=== PATIENT | male | born 1975 | race Caucasian/White ===

== ENCOUNTER 2018-10-23 01:16 | Emergency (ER) | payer OTHER ==
[2018-10-23] MEDS ORDERED: DIPHENOX/ATROP SULF 1 TAB PO ONE (01:42)
[2018-10-23] MEDS ORDERED: ONDANSETRON 4 MG/2 ML VIAL ONE (01:43)
[2018-10-23] MEDS ORDERED: NA CHLORIDE 0.9% 1,000 ML ONE (01:43)
[2018-10-23 02:07] LABS: Absolute Lymphocytes (CBC) 2.5 K/uL (0.7-4.9); Basophils % 0.4 % (0-1.3); Hematocrit 43.2 % (39.6-49.0); MPV 9.4 fL (7.6-11.3); RBC Red Blood Cell Count 4.98 M/uL (4.33-5.43)
[2018-10-23] MEDS ORDERED: DICYCLOMINE HCL 10 MG CAP ONE (02:29)
[2018-10-23 02:31] LABS: ALT/SGPT 36 U/L (12-78); AST/SGOT 18 U/L (15-37); Albumin 4.2 g/dL (3.4-5.0); Alkaline Phosphatase 117 U/L (45-117); BUN Blood Urea Nitrogen 23 mg/dL (7-18); Bicarbonate 26 mmol/L (21-32); Bilirubin Direct < 0.1 mg/dL (0-0.2); Bilirubin Total 0.3 mg/dL (0.2-1.0); Glucose Level 114 mg/dL (74-106); Lipase 214 U/L (73-393); Potassium 4.6 mmol/L (3.5-5.1); Protein, Total 7.4 g/dL (6.4-8.2); Sodium Level 137 mmol/L (136-145)
--- NOTE | 2018-10-23 02:39 | EDPHYS ---
Physician Documentation [facility] Name: Lexx Art Age: 43 yrs Sex: Male : 1975 Arrival Date: 10/23/2018 Time: 01:18 Bed 17 Private MD: ED Physician Colt John HPI: 10/23 02:32 This 43 yrs old Male presents to ER via Ambulatory with complaints of tw4 Abdominal Pain. 02:32 The patient presents to the emergency department with nausea, diarrhea, 2 times since tw4 the onset of symptoms. Onset: The symptoms/episode began/occurred today. Possible causes: unknown. The symptoms are aggravated by nothing. The symptoms are alleviated by nothing. Severity of symptoms: At their worst the symptoms were moderate in the emergency department the symptoms are unchanged. The patient has not experienced similar symptoms in the past. Historical: - Allergies: 01:27 No Known Allergies; ao - Home Meds: 01:27 Lexapro Oral [Active]; ao - PMHx: :27 Depression; ao - PSHx: 01:27 None; ao - Immunization history:: Adult Immunizations up to date. - Social history:: Smoking status: Patient uses tobacco products. - Ebola Screening: : Patient negative for fever greater than or equal to 101.5 degrees Fahrenheit, and additional compatible Ebola Virus Disease symptoms Patient denies exposure to infectious person Patient denies travel to an Ebola-affected area in the 21 days before illness onset. ROS: 02:32 Constitutional: Negative for fever, chills, and weight loss, Eyes: Negative for injury, tw4 pain, redness, and discharge, Cardiovascular: Negative for chest pain, palpitations, and edema, Respiratory: Negative for shortness of breath, cough, wheezing, and pleuritic chest pain. 02:32 Back: Negative for injury and pain, MS/Extremity: Negative for injury and deformity, Skin: Negative for injury, rash, and discoloration, Neuro: Negative for headache, weakness, numbness, tingling, and seizure. 02:32 Abdomen/GI: Positive for abdominal pain, nausea, diarrhea, abdominal cramps, Negative for nausea and vomiting, vomiting. Exam: 02:32 Constitutional: This is a well developed, well nourished patient who is awake, alert, tw4 and in no acute distress. Head/Face: Normocephalic, atraumatic. Chest/axilla: Normal chest wall appearance and motion. Nontender with no deformity. No lesions are appreciated. Cardiovascular: Regular rate and rhythm with a normal S1 and S2. No gallops, murmurs, or rubs. Normal PMI, no JVD. No pulse deficits. Respiratory: Lungs have equal breath sounds bilaterally, clear to auscultation and percussion. No rales, rhonchi or wheezes noted. No increased work of breathing, no retractions or nasal flaring. Abdomen/GI: Soft, non-tender, with normal bowel sounds. No distension or tympany. No guarding or rebound. No evidence of tenderness throughout. Back: No spinal tenderness. No costovertebral tenderness. Full range of motion. MS/ Extremity: Pulses equal, no cyanosis. Neurovascular intact. Full, normal range of motion. Neuro: Awake and alert, GCS 15, oriented to person, place, time, and situation. Cranial nerves II-XII grossly intact. Motor strength 5/5 in all extremities. Sensory grossly intact. Cerebellar exam normal. Normal gait. Vital Signs: 01:27 BP 145 / 97; Pulse 75; Resp 18; Temp 98.5; Pulse Ox 97% on R/A; Weight 97.52 kg (R); ao Height 5 ft. 10 in. (177.80 cm) (R); Pain 6/10; 02:41 BP 147 / 99; Pulse 66; Resp 18; Pulse Ox 97% on R/A; ea 01:27 Body Mass Index 30.85 (97.52 kg, 177.80 cm) ao MDM: 01:24 Patient medically screened. tw4 02:32 Differential diagnosis: Nonspecific abd pain, gastritis, viral gastroenteritis, tw4 gastroenteritis. Data reviewed: vital signs, nurses notes. Data reviewed: lab test result(s), CBC, white blood cell count, hemoglobin, hematocrit, platelets, electrolytes, sodium, potassium, chloride, serum bicarbonate, BUN, creatinine, serum glucose. Data interpreted: Pulse oximetry: Interpretation: normal. Counseling: I had a detailed discussion with the patient and/or guardian regarding: the historical points, exam findings, and any diagnostic results supporting the discharge/admit diagnosis, lab results. Medication response: Zofran markedly relieved the patient's nausea. lomotil. Response to treatment: the patient's symptoms have markedly improved after treatment, and as a result, I will discharge patient. Special discussion: Based on the patient's Hx, exam, and Dx evaluation, there is no indication for emergent surgery or inpatient Tx. It is understood by the patient/guardian that if the Sx's persist or worsen they need to return immediately for re-evaluation. Based on the patient's history, exam and DX evaluation, there is no indication for emergent intervention or inpatient TX. It is understood by the patient/guardian that if the SXs persist or worsen they need to return immediately for re-evaluation. 10/23 01:24 Order name: Basic Metabolic Panel 10/23 01:24 Order name: CBC with Diff; Complete Time: 02:25 10/23 02:25 Interpretation: Normal except: WBC 14.8; JOE% 76.4; NEUT A 11.3. 10/23 01:24 Order name: Creatinine for Radiology 10/23 01:24 Order name: Hepatic Function 10/23 01:24 Order name: Lipase 10/23 01:24 Order name: IV Saline Lock; Complete Time: 01:33 10/23 01:24 Order name: Labs collected and sent; Complete Time: :33 Administered Medications: 01:45 Drug: LoMOTIL 2 tabs Route: PO; ao 02:30 Follow up: Response: No adverse reaction ea 01:46 Drug: Zofran 4 mg Route: IVP; Site: left antecubital; ao 02:30 Follow up: Response: No adverse reaction ea 01:49 Drug: NS 0.9% 1000 ml Route: IV; Rate: 1 bolus; Site: left antecubital; ao 02:40 Follow up: Response: No adverse reaction; IV Status: Completed infusion; IV Intake: ea 1000ml 02:30 Drug: Bentyl 20 mg Route: PO; ea 02:30 Follow up: Response: No adverse reaction ea Disposition: 10/23/18 02:37 Discharged to Home. Impression: Nausea with vomiting, unspecified, Diarrhea, unspecified. - Condition is Stable. - Discharge Instructions: Food Choices to Help Relieve Diarrhea, Adult, Diarrhea, Adult, Nausea and Vomiting, Adult. - Prescriptions for Zofran 4 mg Oral Tablet - take 1 tablet by ORAL route every 12 hours As needed; 6 tablet. Lomotil 2.5- 0.025 mg Oral Tablet - take 2 tablet by ORAL route once daily As needed; 20 tablet. - Work release form, Medication Reconciliation Form, Thank You Letter, Antibiotic Education, Prescription Opioid Use form. - Follow up: Private Physician; When: Upon discharge from the Emergency Department; Reason: If symptoms return, Recheck today's complaints, Continuance of care. - Problem is new. - Symptoms have improved. Signatures: Dispatcher [employer] EDRI Jules Carter, RN RN Zoe Wiggins RN RN Colt Tolbert MD MD tw4 Corrections: (The following items were deleted from the chart) 02:54 02:37 10/23/2018 02:37 Discharged to Home. Impression: Nausea with vomiting, ea unspecified; Diarrhea, unspecified. Condition is Stable. Forms are Medication Reconciliation Form, Thank You Letter, Antibiotic Education, Prescription Opioid Use. Follow up: Private Physician; When: Upon discharge from the Emergency Department; Reason: If symptoms return, Recheck today's complaints, Continuance of care. Problem is new. Symptoms have improved. tw4
--- NOTE | 2018-10-23 02:39 | ER ---
Nurse's Notes [facility] Name: Lexx Art Age: 43 yrs Sex: Male : 1975 Arrival Date: 10/23/2018 Time: 01:18 Bed 17 Private MD: Diagnosis: Nausea with vomiting, unspecified;Diarrhea, unspecified Presentation: 10/23 01:24 Presenting complaint: Patient states: Abdominal pain since 1800. Patient denies nausea ao or vomiting. Patient report pain level of 6/10. Transition of care: patient was not received from another setting of care. Onset of symptoms is unknown. Risk Assessment: Do you want to hurt yourself or someone else? Patient reports no desire to harm self or others. Initial Sepsis Screen: Does the patient meet any 2 criteria? No. Patient's initial sepsis screen is negative. Does the patient have a suspected source of infection? No. Patient's initial sepsis screen is negative. Care prior to arrival: None. 01:24 Method Of Arrival: Ambulatory ao 01:24 Acuity: MATT 3 ao Historical: - Allergies: 01:27 No Known Allergies; ao - Home Meds: :27 Lexapro Oral [Active]; ao - PMHx: :27 Depression; ao - PSHx: 01:27 None; ao - Immunization history:: Adult Immunizations up to date. - Social history:: Smoking status: Patient uses tobacco products. - Ebola Screening: : Patient negative for fever greater than or equal to 101.5 degrees Fahrenheit, and additional compatible Ebola Virus Disease symptoms Patient denies exposure to infectious person Patient denies travel to an Ebola-affected area in the 21 days before illness onset. Screenin:30 Abuse screen: Denies threats or abuse. Denies injuries from another. Nutritional ao screening: No deficits noted. Tuberculosis screening: No symptoms or risk factors identified. Fall Risk None identified. Assessment: 01:28 General: Appears in no apparent distress. comfortable, Behavior is calm, cooperative, ao appropriate for age. Pain: Complains of pain in abdomen Pain currently is 7 out of 10 on a pain scale. Neuro: Level of Consciousness is awake, alert, obeys commands, Oriented to person, place, time, situation, none Moves all extremities. Full function Speech is normal, Facial symmetry appears normal. Cardiovascular: Capillary refill < 3 seconds Patient's skin is warm and dry. Respiratory: Airway is patent Respiratory effort is even, unlabored, Respiratory pattern is regular, symmetrical. GI: Abdomen is non-distended, obese, Bowel sounds present X 4 quads. Abd is soft and non tender X 4 quads. : No signs and/or symptoms were reported regarding the genitourinary system. EENT: No signs and/or symptoms were reported regarding the EENT system. Derm: Skin is intact, Skin is pink, warm \T\ dry. normal. Musculoskeletal: Circulation, motion, and sensation intact. Range of motion: intact in all extremities. 02:51 Reassessment: Patient and/or family updated on plan of care and expected duration. Pain ea level reassessed. Patient is alert, oriented x 3, equal unlabored respirations, skin warm/dry/pink. Discharge instruction given to patient, verbalized the understanding of instruction. Pt left ED ambulatory, tolerating well. Vital Signs: 01:27 BP 145 / 97; Pulse 75; Resp 18; Temp 98.5; Pulse Ox 97% on R/A; Weight 97.52 kg (R); ao Height 5 ft. 10 in. (177.80 cm) (R); Pain 6/10; 02:41 BP 147 / 99; Pulse 66; Resp 18; Pulse Ox 97% on R/A; ea 01:27 Body Mass Index 30.85 (97.52 kg, 177.80 cm) ao ED Course: 01:18 Patient arrived in ED. cf2 01:24 Jules Carter RN is Primary Nurse. ao 01:24 Colt John MD is Attending Physician. tw4 01:26 Triage completed. ao 01:28 Arm band placed on right wrist. 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 01:30 Patient has correct armband on for positive identification. armored vehicle officer on. Pulse ao ox on. NIBP on. 01:34 Inserted saline lock: 20 gauge in right antecubital area, using aseptic technique. ao ,using aseptic technique. By LILLY Enriquez Blood collected. 02:50 IV discontinued, intact, bleeding controlled, No redness/swelling at site. Pressure ea dressing applied. 02:52 No provider procedures requiring assistance completed. ea Administered Medications: 01:45 Drug: LoMOTIL 2 tabs Route: PO; ao 02:30 Follow up: Response: No adverse reaction ea 01:46 Drug: Zofran 4 mg Route: IVP; Site: left antecubital; ao 02:30 Follow up: Response: No adverse reaction ea 01:49 Drug: NS 0.9% 1000 ml Route: IV; Rate: 1 bolus; Site: left antecubital; ao 02:40 Follow up: Response: No adverse reaction; IV Status: Completed infusion; IV Intake: ea 1000ml 02:30 Drug: Bentyl 20 mg Route: PO; ea 02:30 Follow up: Response: No adverse reaction ea Intake: 02:40 IV: 1000ml; Total: 1000ml. ea Outcome: 02:37 Discharge ordered by tw4 02:54 Patient left the ED. ea 02:54 Discharged to home ambulatory. ea 02:54 Condition: stable 02:54 Discharge instructions given to patient, Instructed on discharge instructions, follow up and referral plans. medication usage, Demonstrated understanding of instructions, follow-up care, medications, Prescriptions given X 2. Signatures: Jules Carter, RN Zoe Matthews RN Colt Anthony ea, MD MD tw4 Cali Sanchez cf2
[2018-10-23 03:03] VITALS: TEMP 98.5; O2SAT 97
[2018-10-23 03:05] VITALS: BP 147/99
== END 2018-10-23 02:54 | disposition home or self-care (01) ==
LOC: ER 01:16
DX: R11.2 Nausea with vomiting, unspecified (principal); R19.7 Diarrhea, unspecified; F32.9 Major depressive disorder, single episode, unspecified
CPT/HCPCS: 85025; 80048; 36415; 80076; 83690; J7030; J2405; 96361; 96374; 99285